=== PATIENT | male | born 1940 | race Asian ===

== ENCOUNTER 2016-07-21 11:34 | Outpatient (CLI) | payer OTHER ==
[~2016-07-21 11:34] MED LIST: ALBU90AE13 INH; BENICAR HCT1 TA1 PO; BENICAR HCT1 TAB PO; FURO20TA67 PO; LANOXIN 0.120.125 M1 PO; LORA10TA3 PO; LORTAB1 TAB PO; MELO-13 PO; POTASSIUM CHLO20 ME1 PO; PROAIR HFA IN; RANI150T78 PO; Z-PAK PO
== END 2016-07-21 19:52 | disposition home or self-care (01) ==
LOC: LABW 11:34
DX: I48.0 Paroxysmal atrial fibrillation (principal); Z79.899 Other long term (current) drug therapy; Z51.81 Encounter for therapeutic drug level monitoring
CPT/HCPCS: 36415; 85610

== ENCOUNTER 2016-11-19 08:33 | Outpatient (CLI) | payer OTHER | END 2016-11-19 10:00 | disposition home or self-care (01) | LOC: LABW 08:33 | DX: I48.0 Paroxysmal atrial fibrillation (principal); Z79.01 Long term (current) use of anticoagulants | CPT/HCPCS: 36415; 85610 ==

== ENCOUNTER 2016-12-09 08:08 | Outpatient (CLI) | payer OTHER | END 2016-12-09 19:19 | disposition home or self-care (01) | LOC: LABW 08:08 | DX: Z79.01 Long term (current) use of anticoagulants (principal); Z51.81 Encounter for therapeutic drug level monitoring; Z79.899 Other long term (current) drug therapy; I48.0 Paroxysmal atrial fibrillation | CPT/HCPCS: 36415; 85610 ==

== ENCOUNTER 2017-02-12 11:48 | Outpatient (CLI) | payer OTHER | END 2017-02-12 19:14 | disposition home or self-care (01) | LOC: LABW 11:48 | DX: Z79.01 Long term (current) use of anticoagulants (principal); Z79.899 Other long term (current) drug therapy; I48.0 Paroxysmal atrial fibrillation; Z51.81 Encounter for therapeutic drug level monitoring | CPT/HCPCS: 36415; 85610 ==

== ENCOUNTER 2017-06-29 10:55 | Outpatient (CLI) | payer OTHER | END 2017-06-29 21:41 | disposition home or self-care (01) | LOC: LABW 10:55 | DX: Z79.01 Long term (current) use of anticoagulants (principal); Z79.899 Other long term (current) drug therapy; I48.0 Paroxysmal atrial fibrillation; Z51.81 Encounter for therapeutic drug level monitoring | CPT/HCPCS: 36415; 85610 ==

== ENCOUNTER 2017-07-28 13:46 | Outpatient (CLI) | payer OTHER | END 2017-07-28 19:40 | disposition home or self-care (01) | LOC: LABW 13:46 | DX: Z79.01 Long term (current) use of anticoagulants (principal); I48.0 Paroxysmal atrial fibrillation; Z51.81 Encounter for therapeutic drug level monitoring | CPT/HCPCS: 36415; 85610 ==

== ENCOUNTER 2017-08-23 09:28 | Outpatient (CLI) | payer OTHER | END 2017-08-23 20:23 | disposition home or self-care (01) | LOC: LABW 09:28 | DX: Z79.01 Long term (current) use of anticoagulants (principal); Z79.899 Other long term (current) drug therapy; I48.0 Paroxysmal atrial fibrillation; Z51.81 Encounter for therapeutic drug level monitoring | CPT/HCPCS: 36415; 85610 ==

== ENCOUNTER 2017-10-04 09:17 | Outpatient (CLI) | payer OTHER | END 2017-10-04 19:21 | disposition home or self-care (01) | LOC: LABW 09:17 | DX: Z79.01 Long term (current) use of anticoagulants (principal); Z79.899 Other long term (current) drug therapy; I48.0 Paroxysmal atrial fibrillation; Z51.81 Encounter for therapeutic drug level monitoring | CPT/HCPCS: 36415; 85610 ==

== ENCOUNTER 2017-10-25 09:29 | Outpatient (CLI) | payer OTHER | END 2017-10-25 21:48 | disposition home or self-care (01) | LOC: LABW 09:29 | DX: Z79.01 Long term (current) use of anticoagulants (principal); Z79.899 Other long term (current) drug therapy; Z51.81 Encounter for therapeutic drug level monitoring; I48.0 Paroxysmal atrial fibrillation | CPT/HCPCS: 36415; 85610 ==

== ENCOUNTER 2019-04-04 12:08 | Emergency (ER) | payer OTHER ==
[~2019-04-04] VITALS: Ht 182.9 cm; Wt 143.8 kg
[2019-04-04 12:44] LABS: PLATELET COUNT 168 K/uL (142-355)
[2019-04-04] MEDS ORDERED: METF500T PO (12:46)
[2019-04-04] MEDS ORDERED: PRAVASTATIN10 MG PO (12:46)
[2019-04-04 12:47] LABS: POTASSIUM 3.8 mmol/L (3.6-5.2)
[2019-04-04] MEDS ORDERED: FLONASE SE27.5 MCG/S INH (12:47)
[2019-04-04] MEDS ORDERED: CARTIA XT120 MG PO (12:47)
[2019-04-04] MEDS ORDERED: FURO40TA93 PO (12:48)
[2019-04-04] MEDS ORDERED: LISI10TA11 PO (12:48)
[2019-04-04] MEDS ORDERED: PRADAXA150 MG PO (12:49)
[2019-04-04] MEDS ORDERED: ASPIRIN325 M1 PO (12:49)
[2019-04-04 15:55] VITALS: BP 162/96; TEMP 97.9
== END 2019-04-04 15:55 | disposition short-term general hospital (02) ==
LOC: ED 12:08
PROVIDERS: Family Medicine
DX: I21.09 ST elevation (STEMI) myocardial infarction involving other coronary artery of anterior wall (principal); I50.9 Heart failure, unspecified; I48.91 Unspecified atrial fibrillation
CPT/HCPCS: 36415; 80053; 82550; 83880; 84484; 85027; 93005; 96374; 99284; J1644

== ENCOUNTER 2019-07-01 11:19 | Inpatient (IN) | payer OTHER ==
[2019-07-01] VITALS (21 sets, daily range): BP systolic 139–166; BP diastolic 71–102; TEMP 97.3–98.4; Ht 185.4 cm; Wt 143.0 kg
[~2019-07-01] VITALS: Ht 185.4 cm; Wt 143.0 kg
[~2019-07-01 11:19] MED LIST changes: +ASPIRIN325 M1 PO; +CARTIA XT120 MG PO; +FLONASE SE27.5 MCG/S INH; +FURO40TA93 PO; +LISI10TA11 PO; +METF500T PO; +PRADAXA150 MG PO; +PRAVASTATIN10 MG PO
[2019-07-01 11:56] LABS: PLATELET COUNT 128 K/uL (142-355)
[2019-07-01 12:16] LABS: POTASSIUM 4.2 mmol/L (3.6-5.2); SODIUM 133 mmol/L (136-145)
[2019-07-01 18:40] LABS: PARTIAL THROMBOPLASTIN TIME 25.5 SECONDS (24.5-33.6)
[2019-07-02] VITALS (19 sets, daily range): BP systolic 106–156; BP diastolic 61–95; TEMP 97.5–98.7
[2019-07-02 05:53] LABS: PLATELET COUNT 122 K/uL (142-355)
[2019-07-02 06:09] LABS: POTASSIUM 4.2 mmol/L (3.6-5.2)
[2019-07-03] VITALS: BP 103/70
[2019-07-03 01:00] VITALS: BP 103/70
[2019-07-03 02:00] VITALS: BP 137/80
[2019-07-03 04:00] VITALS: BP 108/84
[2019-07-03 05:42] LABS: PLATELET COUNT 124 K/uL (142-355)
[2019-07-03 05:58] LABS: POTASSIUM 5.4 mmol/L (3.6-5.2)
[2019-07-03 07:00] VITALS: BP 123/69
[2019-07-03 08:04] VITALS: BP 130/74; TEMP 98.2
== END 2019-07-03 10:50 | disposition home or self-care (01) | DRG 189 ==
LOC: ED 11:19 → ICU 15:58
PROVIDERS: Family Medicine; ADMIT Emergency Medicine
DX: J96.01 Acute respiratory failure with hypoxia (principal); Z68.42 Body mass index [BMI] 45.0-49.9, adult; R18.8 Other ascites; R07.89 Other chest pain; I48.91 Unspecified atrial fibrillation; E66.8 Other obesity; I73.89 Other specified peripheral vascular diseases; E78.00 Pure hypercholesterolemia, unspecified; Z91.14 Patient's other noncompliance with medication regimen; I50.9 Heart failure, unspecified
CPT/HCPCS: 36415; 36600; 80053; 80061; 80162; 81000; 82140; 82550; 82553; 82805; 83036; 83880; 84132; 84484; 85027; 85610; 85730; 93005; 94660; 94760; 96374; 99284; J1644; J1940; J2930

== ENCOUNTER 2019-09-29 16:17 | Emergency (ER) | payer OTHER ==
[~2019-09-29] VITALS: Ht 185.4 cm; Wt 145.6 kg
[2019-09-29 17:47] LABS: PLATELET COUNT 153 K/uL (142-355); POTASSIUM 4.9 mmol/L (3.6-5.2); SODIUM 131 mmol/L (136-145)
[2019-09-29 21:45] VITALS: BP 125/68; TEMP 98.3
== END 2019-09-29 21:45 | disposition home or self-care (01) ==
LOC: ED 16:17
PROVIDERS: Family Medicine
DX: I50.9 Heart failure, unspecified (principal); R42 Dizziness and giddiness; I48.91 Unspecified atrial fibrillation
CPT/HCPCS: 36415; 80053; 81000; 82550; 83880; 84484; 85027; 93005; 96374; 99284; J1940

== ENCOUNTER 2019-11-30 15:10 | Inpatient (IN) | payer OTHER ==
[~2019-11-30] VITALS: Ht 185.4 cm; Wt 151.2 kg
[2019-11-30] VITALS (7 sets, daily range): BP systolic 137–163; BP diastolic 75–87; TEMP 97.9–98.2; Ht 185.4 cm; Wt 151.2 kg
[2019-11-30 15:37] LABS: PLATELET COUNT 148 K/uL (142-355)
[2019-11-30 15:45] LABS: POTASSIUM 4.1 mmol/L (3.6-5.2); SODIUM 124 mmol/L (136-145)
[2019-11-30 17:11] LABS: PARTIAL THROMBOPLASTIN TIME 26.6 SECONDS (24.5-33.6)
[2019-12-01] VITALS (13 sets, daily range): BP systolic 115–158; BP diastolic 57–88; TEMP 97.8–98.8
[2019-12-01 05:36] LABS: POTASSIUM 3.8 mmol/L (3.6-5.2)
[2019-12-02 00:05] VITALS: BP 158/88; TEMP 98.1
[2019-12-02 04:01] VITALS: BP 132/85; TEMP 98.3
[2019-12-02 05:25] LABS: POTASSIUM 3.6 mmol/L (3.6-5.2)
[2019-12-02 08:00] VITALS: BP 125/71; TEMP 98.1
[2019-12-02 21:24] VITALS: BP 143/83; TEMP 97.7
[2019-12-03 00:11] VITALS: BP 118/59; TEMP 98
[2019-12-03 04:07] VITALS: BP 121/55; TEMP 97.8
[2019-12-03 05:30] LABS: POTASSIUM 3.8 mmol/L (3.6-5.2); SODIUM 132 mmol/L (136-145)
[2019-12-03] MEDS ORDERED: SOD CHLORIDE1 GM PO (11:21)
[2019-12-03] MEDS ORDERED: ACETAMINOPHEN PO (11:24)
[2019-12-03] MEDS ORDERED: [UNRECOGNIZED DRUG - OTHER] PO (11:24)
== END 2019-12-03 12:05 | disposition home or self-care (01) | DRG 291 ==
LOC: ED 15:10 → MED/SURG 16:20
PROVIDERS: Hospitalist; ADMIT Internal Medicine
DX: I11.0 Hypertensive heart disease with heart failure (principal); I50.21 Acute systolic (congestive) heart failure; E87.1 Hypo-osmolality and hyponatremia; J44.9 Chronic obstructive pulmonary disease, unspecified; E11.9 Type 2 diabetes mellitus without complications; E78.49 Other hyperlipidemia; K21.9 Gastro-esophageal reflux disease without esophagitis
CPT/HCPCS: 36600; 80048; 80053; 80162; 82550; 82805; 83735; 83880; 84484; 85027; 85379; 85610; 85730; 87070; 87205; 87502; 87635; 87651; 93005; 96374; 99284; J1650; J1940; U0002

== ENCOUNTER 2020-03-23 21:01 | Emergency (ER) | payer OTHER ==
[~2020-03-23] VITALS: Ht 185.4 cm; Wt 136.1 kg
[~2020-03-23 21:01] MED LIST changes: +ACETAMINOPHEN PO; +SOD CHLORIDE1 GM PO; +[UNRECOGNIZED DRUG - OTHER] PO
[2020-03-23 22:47] LABS: PLATELET COUNT 172 K/uL (142-355)
[2020-03-23 22:55] LABS: POTASSIUM 3.6 mmol/L (3.6-5.2); SODIUM 127 mmol/L (136-145)
[2020-03-24 01:45] VITALS: BP 139/67; TEMP 98.4
== END 2020-03-24 01:45 | disposition home or self-care (01) ==
LOC: ED 21:01
PROVIDERS: Emergency Medicine
DX: I50.9 Heart failure, unspecified (principal); R05 Cough
CPT/HCPCS: 36415; 80053; 81000; 82550; 82553; 83605; 83880; 84484; 85027; 85379; 87040; 93005; 96365; 96375; 99284; J0456; J1940

== ENCOUNTER 2020-03-29 19:27 | Inpatient (IN) | payer OTHER ==
[~2020-03-29] VITALS: Ht 185.4 cm; Wt 135.2 kg
[2020-03-29] VITALS (12 sets, daily range): BP systolic 93–135; BP diastolic 43–86; TEMP 98.2
[2020-03-29 20:44] LABS: PLATELET COUNT 227 K/uL (142-355)
[2020-03-29 20:51] LABS: POTASSIUM 3.3 mmol/L (3.6-5.2)
[2020-03-29 20:55] LABS: PARTIAL THROMBOPLASTIN TIME 27.9 SECONDS (24.5-33.6)
[2020-03-29 21:02] LABS: SODIUM 118 mmol/L (136-145)
[2020-03-30] VITALS (11 sets, daily range): BP systolic 94–146; BP diastolic 54–80; TEMP 97.5–98.4; Ht 185.4 cm; Wt 135.2 kg
[2020-03-30 00:04] LABS: POTASSIUM 3.5 mmol/L (3.6-5.2)
[2020-03-30 05:27] LABS: PLATELET COUNT 214 K/uL (142-355)
[2020-03-30 05:46] LABS: POTASSIUM 2.9 mmol/L (3.6-5.2)
[2020-03-30 06:07] LABS: SODIUM 118 mmol/L (136-145)
[2020-03-30 09:26] LABS: POTASSIUM 3.3 mmol/L (3.6-5.2)
[2020-03-30 12:18] LABS: POTASSIUM 3.3 mmol/L (3.6-5.2)
[2020-03-30 17:06] LABS: POTASSIUM 3.4 mmol/L (3.6-5.2)
[2020-03-30 20:51] LABS: POTASSIUM 3.3 mmol/L (3.6-5.2)
[2020-03-31 00:51] LABS: POTASSIUM 3.3 mmol/L (3.6-5.2)
[2020-03-31 04:00] VITALS: BP 136/62; TEMP 98.4
[2020-03-31 05:52] LABS: POTASSIUM 3.5 mmol/L (3.6-5.2)
[2020-03-31 08:00] VITALS: BP 121/61; TEMP 97.6
[2020-03-31 08:44] LABS: POTASSIUM 3.5 mmol/L (3.6-5.2)
[2020-03-31 11:58] LABS: POTASSIUM 3.6 mmol/L (3.6-5.2)
[2020-03-31 12:00] VITALS: BP 123/68; TEMP 97.7
[2020-03-31 16:00] VITALS: BP 154/92; TEMP 97.4
[2020-03-31 17:16] LABS: POTASSIUM 4.1 mmol/L (3.6-5.2)
[2020-03-31 20:00] VITALS: BP 83/62; TEMP 97.6
[2020-03-31 22:29] LABS: POTASSIUM 3.8 mmol/L (3.6-5.2)
[2020-04-01] VITALS: BP 116/68; TEMP 98.7
[2020-04-01 04:00] VITALS: BP 161/66; TEMP 98.7
[2020-04-01 06:15] LABS: POTASSIUM 3.9 mmol/L (3.6-5.2)
[2020-04-01 08:00] VITALS: BP 138/75; TEMP 98.2
[2020-04-01 08:19] LABS: POTASSIUM 4.1 mmol/L (3.6-5.2)
[2020-04-01 12:00] VITALS: BP 121/77; TEMP 98.1
[2020-04-01 12:40] LABS: POTASSIUM 4.2 mmol/L (3.6-5.2)
[2020-04-01 16:00] VITALS: BP 151/58; TEMP 98.1
[2020-04-01 20:00] VITALS: BP 121/71; TEMP 97.4
[2020-04-01 20:46] LABS: POTASSIUM 4.3 mmol/L (3.6-5.2)
[2020-04-02] VITALS: BP 154/90; TEMP 97.4
[2020-04-02 01:11] LABS: POTASSIUM 3.9 mmol/L (3.6-5.2)
[2020-04-02 04:00] VITALS: BP 157/73; TEMP 97.5
[2020-04-02 05:53] LABS: POTASSIUM 3.9 mmol/L (3.6-5.2)
[2020-04-02 08:00] VITALS: BP 118/66; TEMP 98.1
[2020-04-02 08:38] LABS: POTASSIUM 4.6 mmol/L (3.6-5.2)
[2020-04-02 12:00] VITALS: BP 123/57; TEMP 97.6
[2020-04-02 12:27] LABS: POTASSIUM 4.7 mmol/L (3.6-5.2)
[2020-04-02] MEDS ORDERED: METO5TAB38 PO (15:56)
[2020-04-02] MEDS ORDERED: MONTELUKAST SODI5 MG PO (15:57)
[2020-04-02 16:00] VITALS: BP 119/52; TEMP 98.1
[2020-04-02] MEDS ORDERED: FURO40TA93 PO (16:00)
[2020-04-02] MEDS ORDERED: ELIQUIS5 MG PO (16:00)
[2020-04-02 16:06] LABS: POTASSIUM 4.9 mmol/L (3.6-5.2)
[2020-04-02 20:00] VITALS: BP 134/75; TEMP 97.6
[2020-04-02 21:14] LABS: POTASSIUM 4.7 mmol/L (3.6-5.2)
[2020-04-03] VITALS: BP 121/76; TEMP 97.8
[2020-04-03 01:33] LABS: POTASSIUM 4.4 mmol/L (3.6-5.2)
[2020-04-03 04:00] VITALS: BP 134/76; TEMP 97.8
[2020-04-03 04:48] LABS: PLATELET COUNT 222 K/uL (142-355)
[2020-04-03 05:24] LABS: POTASSIUM 4.3 mmol/L (3.6-5.2)
[2020-04-03 08:00] VITALS: BP 113/59; TEMP 98.5
[2020-04-03 08:26] LABS: POTASSIUM 4.6 mmol/L (3.6-5.2)
[2020-04-03] MEDS ORDERED: SOD CHLORIDE1 GM PO (11:16)
[2020-04-03 12:00] VITALS: BP 138/74; TEMP 98.3
[2020-04-03 12:29] LABS: POTASSIUM 4.4 mmol/L (3.6-5.2)
[2020-04-03 16:00] VITALS: BP 144/80; TEMP 98.4
[2020-04-03 16:43] LABS: POTASSIUM 5.8 mmol/L (3.6-5.2)
== END 2020-04-03 19:37 | disposition home or self-care (01) | DRG 641 ==
LOC: ED 19:27 → MED/SURG 03-30 01:40
PROVIDERS: Family Medicine; Internal Medicine; ADMIT Internal Medicine Endocrinology, Diabetes & Metabolism
DX: E87.1 Hypo-osmolality and hyponatremia (principal); Z68.42 Body mass index [BMI] 45.0-49.9, adult; I50.20 Unspecified systolic (congestive) heart failure; E87.6 Hypokalemia; R53.1 Weakness; E11.9 Type 2 diabetes mellitus without complications; E78.49 Other hyperlipidemia; I11.0 Hypertensive heart disease with heart failure; I50.9 Heart failure, unspecified; E66.01 Morbid (severe) obesity due to excess calories; I48.91 Unspecified atrial fibrillation; K21.9 Gastro-esophageal reflux disease without esophagitis; G47.39 Other sleep apnea
CPT/HCPCS: 36415; 80048; 80053; 80162; 81000; 82550; 82948; 83880; 83930; 83935; 84484; 85027; 85610; 85730; 93005; 96360; 96366; 96372; 96374; 96375; 99284; J1815; J1940; J3480; J3490

== ENCOUNTER 2020-04-08 07:26 | Outpatient (CLI) | payer OTHER ==
[~2020-04-08 07:26] MED LIST changes: +ELIQUIS5 MG PO; +METO5TAB38 PO; +MONTELUKAST SODI5 MG PO
== END 2020-04-08 19:02 | disposition home or self-care (01) ==
LOC: RESP 07:26
DX: I50.20 Unspecified systolic (congestive) heart failure (principal); R00.1 Bradycardia, unspecified; E87.1 Hypo-osmolality and hyponatremia

== ENCOUNTER 2020-08-21 19:25 | Emergency (ER) | payer OTHER ==
[~2020-08-21] VITALS: Ht 185.4 cm; Wt 142.9 kg
[2020-08-21 20:05] LABS: PLATELET COUNT 190 K/uL (142-355)
[2020-08-21 20:22] LABS: PARTIAL THROMBOPLASTIN TIME 26.5 SECONDS (24.5-33.6)
[2020-08-21 20:25] LABS: POTASSIUM 4.2 mmol/L (3.6-5.2); SODIUM 134 mmol/L (136-145)
[2020-08-21 21:40] VITALS: BP 148/79; TEMP 98.2
== END 2020-08-21 21:40 | disposition home or self-care (01) ==
LOC: ED 19:25
PROVIDERS: Family Medicine
DX: I50.9 Heart failure, unspecified (principal); Z20.828 Contact with and (suspected) exposure to other viral communicable diseases
CPT/HCPCS: 80053; 82550; 83880; 84484; 85027; 85379; 85610; 85730; 87635; 93005; 96374; 96375; 99284; J1940; J2930; U0003

== ENCOUNTER 2020-09-03 12:00 | Outpatient (CLI) | payer OTHER ==
[2020-09-03 13:15] LABS: POTASSIUM 4.3 mmol/L (3.6-5.2)
== END 2020-09-03 21:07 | disposition home or self-care (01) ==
LOC: LABW 12:00
PROVIDERS: ATTEND Nurse Practitioner
DX: E78.2 Mixed hyperlipidemia (principal); Z51.81 Encounter for therapeutic drug level monitoring; I10 Essential (primary) hypertension; I42.0 Dilated cardiomyopathy; R60.0 Localized edema
CPT/HCPCS: 36415; 80048; 80061; 80076

== ENCOUNTER 2020-09-27 08:18 | Emergency (ER) | payer OTHER ==
[~2020-09-27] VITALS: Ht 185.4 cm; Wt 131.5 kg
[2020-09-27 08:32] VITALS: TEMP 98.1
[2020-09-27 09:20] LABS: PLATELET COUNT 143 K/uL (142-355)
[2020-09-27 09:30] LABS: POTASSIUM 3.6 mmol/L (3.6-5.2); SODIUM 137 mmol/L (136-145)
[2020-09-27 11:21] VITALS: BP 130/70
== END 2020-09-27 11:22 | disposition home or self-care (01) ==
LOC: ED 08:18
PROVIDERS: Family Medicine
DX: I48.91 Unspecified atrial fibrillation (principal); I50.9 Heart failure, unspecified
CPT/HCPCS: 36415; 80053; 83880; 84484; 85027; 85379; 93005; 96374; 99284; J1940

== ENCOUNTER 2020-10-11 11:36 | Emergency (ER) | payer OTHER ==
[~2020-10-11] VITALS: Ht 185.4 cm; Wt 136.1 kg
[2020-10-11 12:06] LABS: PLATELET COUNT 166 K/uL (142-355)
[2020-10-11 12:12] LABS: POTASSIUM 4.3 mmol/L (3.6-5.2); SODIUM 137 mmol/L (136-145)
[2020-10-11 15:50] VITALS: BP 114/70; TEMP 98
== END 2020-10-11 15:50 | disposition home or self-care (01) ==
LOC: ED 11:36
PROVIDERS: Family Medicine
DX: I50.9 Heart failure, unspecified (principal); J44.9 Chronic obstructive pulmonary disease, unspecified
CPT/HCPCS: 36415; 80053; 81000; 83880; 84484; 85027; 93005; 96374; 99284; J1940

== ENCOUNTER 2020-11-23 22:00 | Inpatient (IN) | payer OTHER ==
[~2020-11-23] VITALS: Ht 182.9 cm; Wt 138.0 kg
[2020-11-23 22:10] VITALS: BP 150/64
[2020-11-23 22:31] VITALS: BP 138/72
[2020-11-23 22:37] LABS: PLATELET COUNT 121 K/uL (142-355)
[2020-11-23 23:00] VITALS: BP 111/57
[2020-11-23 23:21] LABS: POTASSIUM 3.6 mmol/L (3.6-5.2)
[2020-11-23 23:45] VITALS: BP 128/75
[2020-11-24] VITALS (13 sets, daily range): BP systolic 117–145; BP diastolic 54–91; TEMP 97.4–98.3; Ht 182.9 cm; Wt 138.0 kg
[2020-11-24] MEDS ORDERED: POTASSIUM CHLO20 ME1 PO (04:39)
[2020-11-24] MEDS ORDERED: ASA LOW DOSE81 MG PO (04:41)
[2020-11-24 08:07] LABS: PLATELET COUNT 132 K/uL (142-355)
[2020-11-24 08:26] LABS: POTASSIUM 4.2 mmol/L (3.6-5.2)
[2020-11-24] MEDS ORDERED: PRINIVIL10 MG PO (09:02)
[2020-11-25 00:04] VITALS: BP 134/74; TEMP 98.4
[2020-11-25 04:21] VITALS: BP 103/61; TEMP 97.5
[2020-11-25 07:43] LABS: PLATELET COUNT 123 K/uL (142-355)
[2020-11-25 08:00] VITALS: BP 152/76; TEMP 98.1
[2020-11-25 08:27] LABS: POTASSIUM 3.8 mmol/L (3.6-5.2)
== END 2020-11-25 10:45 | disposition home or self-care (01) | DRG 191 ==
LOC: ED 22:00 → MED/SURG 11-24 02:17
PROVIDERS: ADMIT Family Medicine; ATTEND Internal Medicine Endocrinology, Diabetes & Metabolism
DX: J44.1 Chronic obstructive pulmonary disease with (acute) exacerbation (principal); I50.1 Left ventricular failure, unspecified; I48.19 Other persistent atrial fibrillation; Z68.42 Body mass index [BMI] 45.0-49.9, adult; J38.00 Paralysis of vocal cords and larynx, unspecified; I11.0 Hypertensive heart disease with heart failure; E11.9 Type 2 diabetes mellitus without complications; R07.89 Other chest pain; E66.01 Morbid (severe) obesity due to excess calories
CPT/HCPCS: 36415; 80048; 80053; 82550; 83880; 84484; 85027; 85379; 85610; 85730; 87635; 93005; 94640; 94664; 94760; 96360; 96365; 96366; 96372; 96374; 96375; 99284; J0696; J1200; J1815; J1940; J2930; U0003

== ENCOUNTER 2020-12-17 13:52 | Emergency (ER) | payer OTHER ==
[~2020-12-17] VITALS: Ht 185.4 cm; Wt 137.9 kg
[~2020-12-17 13:52] MED LIST changes: +ASA LOW DOSE81 MG PO; +PRINIVIL10 MG PO
[2020-12-17 14:03] VITALS: TEMP 98.1
[2020-12-17 15:10] LABS: PLATELET COUNT 138 K/uL (142-355)
[2020-12-17 15:17] LABS: POTASSIUM 3.4 mmol/L (3.6-5.2)
[2020-12-17 17:57] VITALS: BP 122/78
== END 2020-12-17 18:05 | disposition short-term general hospital (02) ==
LOC: ED 13:52
PROVIDERS: Family Medicine
DX: R06.03 Acute respiratory distress (principal); R06.1 Stridor
CPT/HCPCS: 80053; 85027; 94664; 96365; 96375; 99284; J0696; J2930

== ENCOUNTER 2021-01-07 12:45 | Emergency (ER) | payer OTHER | END 2021-01-07 16:10 | disposition short-term general hospital (02) | LOC: ED 12:45 | PROC: 0HQ4XZZ Repair Neck Skin, External Approach (ICD-10-PCS; principal; 2021-01-07) | DX: S23.29XA Dislocation of other parts of thorax, initial encounter (principal); X58.XXXA Exposure to other specified factors, initial encounter; Y93.89 Activity, other specified; Y92.89 Other specified places as the place of occurrence of the external cause; R04.1 Hemorrhage from throat | CPT/HCPCS: 99284 ==

== ENCOUNTER 2021-01-13 15:41 | Observation (INO) | payer OTHER ==
[2021-01-21 11:36] LABS: PLATELET COUNT 183 K/uL (142-355)
[2021-01-21 11:38] LABS: POTASSIUM 3.9 mmol/L (3.6-5.2)
[2021-01-22 17:02] LABS: POTASSIUM 4.2 mmol/L (3.6-5.2)
== END 2021-01-14 15:55 | disposition home or self-care (01) ==
LOC: ED 15:41 → MED/SURG 18:30
PROVIDERS: ADMIT Emergency Medicine Emergency Medical Services; ATTEND Internal Medicine
PROC: 30233N1 Transfusion of Nonautologous Red Blood Cells into Peripheral Vein, Percutaneous Approach (ICD-10-PCS; principal; 2021-01-14)
DX: D62 Acute posthemorrhagic anemia (principal); J44.1 Chronic obstructive pulmonary disease with (acute) exacerbation; I11.0 Hypertensive heart disease with heart failure; I50.9 Heart failure, unspecified; I48.91 Unspecified atrial fibrillation; J95.01 Hemorrhage from tracheostomy stoma
CPT/HCPCS: 36415; 80048; 80053; 82948; 83880; 85027; 87635; 93005; 94640; 94644; 94664; 94760; 96365; 96372; 96375; 99220; 99284; G0378; U0003

== ENCOUNTER 2021-02-13 12:27 | Outpatient (CLI) | payer OTHER | END 2021-02-13 22:06 | disposition home or self-care (01) | LOC: LAB 12:27 | PROVIDERS: ATTEND Nurse Practitioner Family | DX: R30.9 Painful micturition, unspecified (principal) | CPT/HCPCS: 81000 ==

== ENCOUNTER 2021-02-15 17:48 | Emergency (ER) | payer OTHER ==
[~2021-02-15] VITALS: Ht 185.4 cm; Wt 137.9 kg
[2021-02-15 17:48] VITALS: TEMP 97.1
[2021-02-15 18:38] LABS: PLATELET COUNT 231 K/uL (142-355)
[2021-02-15 18:49] LABS: POTASSIUM 3.7 mmol/L (3.6-5.2); SODIUM 123 mmol/L (136-145)
[2021-02-15 19:50] VITALS: BP 121/68
== END 2021-02-15 19:50 | disposition home or self-care (01) ==
LOC: ED 17:48
PROVIDERS: Emergency Medicine
DX: M54.5 Low back pain (principal); M99.9 Biomechanical lesion, unspecified; I48.91 Unspecified atrial fibrillation; R06.02 Shortness of breath
CPT/HCPCS: 80053; 82550; 83880; 84484; 85027; 93005; 96374; 99284; J1885

== ENCOUNTER 2021-02-16 22:11 | Inpatient (IN) | payer OTHER ==
[~2021-02-16] VITALS: Ht 185.4 cm; Wt 120.9 kg
[2021-02-16 22:28] VITALS: BP 110/74; TEMP 98.7
[2021-02-16 22:37] LABS: PLATELET COUNT 227 K/uL (142-355)
[2021-02-16 22:56] VITALS: BP 120/83; TEMP 98.7
[2021-02-16 22:59] LABS: POTASSIUM 3.8 mmol/L (3.6-5.2); SODIUM 120 mmol/L (136-145)
[2021-02-16 23:15] LABS: PARTIAL THROMBOPLASTIN TIME 29.2 SECONDS (24.5-33.6)
[2021-02-16 23:26] VITALS: BP 157/75; TEMP 98.7
[2021-02-17] VITALS (8 sets, daily range): BP systolic 101–151; BP diastolic 50–79; TEMP 97.3–98.4; Ht 185.4 cm; Wt 120.9 kg
[2021-02-17 08:09] LABS: POTASSIUM 3.5 mmol/L (3.6-5.2)
[2021-02-17 20:46] LABS: POTASSIUM 3.4 mmol/L (3.6-5.2)
[2021-02-18 00:16] VITALS: BP 103/45; TEMP 97.9
[2021-02-18 02:19] LABS: PLATELET COUNT 209 K/uL (142-355)
[2021-02-18 04:00] VITALS: BP 116/66; TEMP 98.1
[2021-02-18 08:00] VITALS: BP 123/60; TEMP 98.2
[2021-02-18 08:24] LABS: POTASSIUM 2.8 mmol/L (3.6-5.2)
[2021-02-18 12:00] VITALS: BP 112/64; TEMP 98.1
[2021-02-18 14:05] LABS: POTASSIUM 2.7 mmol/L (3.6-5.2)
[2021-02-18 16:00] VITALS: BP 129/66; TEMP 98.3
[2021-02-18 19:44] LABS: POTASSIUM 3.7 mmol/L (3.6-5.2)
[2021-02-18 20:00] VITALS: BP 129/65; TEMP 98.3
[2021-02-19 00:17] VITALS: BP 97/61; TEMP 98.2
[2021-02-19 02:25] LABS: PLATELET COUNT 201 K/uL (142-355)
[2021-02-19 03:06] LABS: POTASSIUM 2.6 mmol/L (3.6-5.2)
[2021-02-19 04:00] VITALS: BP 131/68; TEMP 98.2
[2021-02-19 08:00] VITALS: BP 120/65; TEMP 97.9
[2021-02-19 08:40] LABS: POTASSIUM 2.9 mmol/L (3.6-5.2)
[2021-02-19 12:27] VITALS: BP 115/73; TEMP 98.1
[2021-02-19 14:38] LABS: POTASSIUM 3.3 mmol/L (3.6-5.2)
[2021-02-19 16:00] VITALS: BP 165/61; TEMP 97.4
[2021-02-19 20:00] VITALS: BP 95/54; TEMP 97.6
[2021-02-20 00:23] VITALS: BP 122/59; TEMP 98.4
[2021-02-20 04:00] VITALS: BP 148/74; TEMP 98.3
[2021-02-20 06:31] LABS: PLATELET COUNT 217 K/uL (142-355)
[2021-02-20 06:58] LABS: POTASSIUM 2.7 mmol/L (3.6-5.2)
[2021-02-20 08:00] VITALS: BP 89/46; TEMP 98.3
[2021-02-20 08:24] LABS: POTASSIUM 2.8 mmol/L (3.6-5.2)
[2021-02-20 12:00] VITALS: BP 84/48; TEMP 98
[2021-02-20 16:00] VITALS: BP 116/68; TEMP 98.1
[2021-02-20 20:00] VITALS: BP 113/65; TEMP 98.1
[2021-02-21] VITALS: BP 116/64; TEMP 98.4
[2021-02-21 04:00] VITALS: BP 121/68; TEMP 98.2
[2021-02-21 04:36] LABS: PLATELET COUNT 206 K/uL (142-355)
[2021-02-21 04:49] LABS: POTASSIUM 3.4 mmol/L (3.6-5.2)
[2021-02-21 08:00] VITALS: BP 130/63; TEMP 98.1
[2021-02-21 12:00] VITALS: BP 112/66; TEMP 97.4
[2021-02-21 16:00] VITALS: BP 122/72; TEMP 98.3
[2021-02-21 20:00] VITALS: BP 126/66; TEMP 97.5
[2021-02-22 00:06] VITALS: BP 118/83; TEMP 97.9
[2021-02-22 04:00] VITALS: BP 99/60; TEMP 97.5
[2021-02-22 06:17] LABS: POTASSIUM 3.2 mmol/L (3.6-5.2)
[2021-02-22 08:00] VITALS: BP 138/69; TEMP 98.1
[2021-02-22 12:00] VITALS: BP 106/61; TEMP 97.2
[2021-02-22 16:00] VITALS: BP 109/64; TEMP 97.3
[2021-02-22 20:00] VITALS: BP 127/76; TEMP 98.2
[2021-02-23 00:07] VITALS: BP 123/72; TEMP 97.8
[2021-02-23 04:00] VITALS: BP 113/66; TEMP 97.6
[2021-02-23 05:41] LABS: POTASSIUM 3.3 mmol/L (3.6-5.2)
[2021-02-23 08:00] VITALS: BP 109/60; TEMP 98.2
[2021-02-23] MEDS ORDERED: FURO40TA93 PO (12:03)
[2021-02-23] MEDS ORDERED: DILT30TA24 PO (12:03)
[2021-02-23] MEDS ORDERED: POTA20TA4 PO (12:04)
[2021-02-23] MEDS ORDERED: MAGN400T4 PO (12:04)
[2021-02-23] MEDS ORDERED: SOD CHLORIDE1 GM PO (12:05)
[2021-02-23] MEDS ORDERED: LISI10TA11 PO (12:11)
== END 2021-02-23 12:30 | disposition home or self-care (01) | DRG 189 ==
LOC: ED 22:11 → MED/SURG 23:45
PROVIDERS: Internal Medicine; ADMIT Hospitalist; ATTEND Internal Medicine Endocrinology, Diabetes & Metabolism
DX: J96.20 Acute and chronic respiratory failure, unspecified whether with hypoxia or hypercapnia (principal); J18.8 Other pneumonia, unspecified organism; J44.0 Chronic obstructive pulmonary disease with (acute) lower respiratory infection; Z68.42 Body mass index [BMI] 45.0-49.9, adult; E87.1 Hypo-osmolality and hyponatremia; Z93.0 Tracheostomy status; E11.9 Type 2 diabetes mellitus without complications; I48.91 Unspecified atrial fibrillation; G47.33 Obstructive sleep apnea (adult) (pediatric); I11.0 Hypertensive heart disease with heart failure; I50.9 Heart failure, unspecified; E66.01 Morbid (severe) obesity due to excess calories; K21.9 Gastro-esophageal reflux disease without esophagitis; M15.8 Other polyosteoarthritis; E87.6 Hypokalemia; I95.89 Other hypotension; E83.42 Hypomagnesemia
CPT/HCPCS: 36415; 36600; 80048; 80053; 82550; 82805; 83605; 83735; 83880; 84300; 84484; 85027; 85610; 85730; 87040; 87635; 90658; 93005; 94640; 94664; 94760; 96360; 96365; 96366; 96375; 99284; J0456; J1650; J1940; J1956; J3475; J3490; U0003

== ENCOUNTER 2021-03-06 13:39 | Emergency (ER) | payer OTHER ==
[~2021-03-06] VITALS: Ht 185.4 cm; Wt 120.7 kg
[~2021-03-06 13:39] MED LIST changes: +DILT30TA24 PO; +MAGN400T4 PO; +POTA20TA4 PO
[2021-03-06 18:15] VITALS: BP 126/75; TEMP 98
== END 2021-03-06 18:15 | disposition home or self-care (01) ==
LOC: ED 13:39
DX: S80.01XA Contusion of right knee, initial encounter (principal); S33.5XXA Sprain of ligaments of lumbar spine, initial encounter; W01.198A Fall on same level from slipping, tripping and stumbling with subsequent striking against other object, initial encounter; Y92.098 Other place in other non-institutional residence as the place of occurrence of the external cause
CPT/HCPCS: 96372; 99283; J1885

== ENCOUNTER 2021-03-12 16:41 | Emergency (ER) | payer OTHER ==
[~2021-03-12] VITALS: Ht 185.4 cm; Wt 120.7 kg
[2021-03-12 20:47] LABS: PLATELET COUNT 266 K/uL (142-355)
[2021-03-12 21:04] LABS: POTASSIUM 3.2 mmol/L (3.6-5.2)
[2021-03-12 22:27] VITALS: BP 129/64; TEMP 98.3
== END 2021-03-12 22:27 | disposition home or self-care (01) ==
LOC: ED 16:41
PROVIDERS: Emergency Medicine Emergency Medical Services
DX: J20.9 Acute bronchitis, unspecified (principal); Z93.0 Tracheostomy status
CPT/HCPCS: 36415; 80053; 85027; 99282; 99283

== ENCOUNTER 2021-03-19 13:12 | Emergency (ER) | payer OTHER ==
[~2021-03-19] VITALS: Ht 185.4 cm; Wt 120.7 kg
[2021-03-19 13:12] VITALS: TEMP 98.1
[2021-03-19 15:51] VITALS: BP 127/77
[2021-08-05] MEDS ORDERED: FARXIGA10 MG PO (14:09)
[2021-08-05] MEDS ORDERED: MECLIZINE 2525 MG PO (14:10)
[2021-08-05] MEDS ORDERED: ZOFRAN8 MG PO (14:11)
== END 2021-03-19 16:13 | disposition home or self-care (01) ==
LOC: ED 13:12
PROVIDERS: Family Medicine
DX: J95.01 Hemorrhage from tracheostomy stoma (principal); I48.91 Unspecified atrial fibrillation; Y83.8 Other surgical procedures as the cause of abnormal reaction of the patient, or of later complication, without mention of misadventure at the time of the procedure; Y92.89 Other specified places as the place of occurrence of the external cause
CPT/HCPCS: 85610; 85730; 99283; J7040

== ENCOUNTER 2021-06-02 14:57 | Emergency (ER) | payer OTHER ==
[~2021-06-02] VITALS: Ht 185.4 cm; Wt 120.7 kg
[2021-06-02 15:27] LABS: PLATELET COUNT 186 K/uL (142-355)
[2021-06-02 15:44] LABS: POTASSIUM 3.4 mmol/L (3.6-5.2)
[2021-06-02 15:57] LABS: PARTIAL THROMBOPLASTIN TIME 28.5 SECONDS (24.5-33.6)
[2021-06-02 17:20] VITALS: BP 108/53; TEMP 97.6
== END 2021-06-02 17:20 | disposition home or self-care (01) ==
LOC: ED 14:57
PROVIDERS: Hospitalist
DX: R42 Dizziness and giddiness (principal); I50.9 Heart failure, unspecified; I48.20 Chronic atrial fibrillation, unspecified
CPT/HCPCS: 36415; 80053; 80320; 81000; 82550; 83880; 84484; 85027; 85610; 85730; 93005; 96374; 99284; J1940

== ENCOUNTER 2021-06-19 08:57 | Emergency (ER) | payer OTHER ==
[~2021-06-19] VITALS: Ht 185.4 cm; Wt 120.7 kg
[2021-06-19 09:07] VITALS: TEMP 98.3
[2021-06-19 09:35] LABS: PLATELET COUNT 178 K/uL (142-355)
[2021-06-19 09:42] LABS: POTASSIUM 5.4 mmol/L (3.6-5.2)
[2021-06-19 12:40] VITALS: BP 155/84
== END 2021-06-19 12:40 | disposition home or self-care (01) ==
LOC: ED 08:57
PROVIDERS: Emergency Medicine
DX: T78.3XXA Angioneurotic edema, initial encounter (principal); N17.9 Acute kidney failure, unspecified; E86.0 Dehydration; Z93.0 Tracheostomy status; C14.0 Malignant neoplasm of pharynx, unspecified; Z79.899 Other long term (current) drug therapy; X58.XXXA Exposure to other specified factors, initial encounter; Y92.89 Other specified places as the place of occurrence of the external cause
CPT/HCPCS: 36415; 80048; 83735; 85027; 96360; 96361; 96375; 99284; J1200; J2920

== ENCOUNTER 2021-07-09 11:32 | Emergency (ER) | payer OTHER ==
[~2021-07-09] VITALS: Ht 185.4 cm; Wt 120.7 kg
[2021-07-09 11:32] VITALS: BP 132/78; TEMP 98.1
[2021-07-09 14:14] LABS: PLATELET COUNT 122 K/uL (142-355)
[2021-07-09 14:24] LABS: POTASSIUM 3.8 mmol/L (3.6-5.2)
== END 2021-07-09 15:24 | disposition home or self-care (01) ==
LOC: ED 11:32
PROVIDERS: Emergency Medicine Emergency Medical Services
DX: J20.9 Acute bronchitis, unspecified (principal); R42 Dizziness and giddiness
CPT/HCPCS: 80048; 85027; 87651; 93005; 99283

== ENCOUNTER 2021-08-31 18:18 | Emergency (ER) | payer OTHER ==
[~2021-08-31] VITALS: Ht 182.9 cm; Wt 122.5 kg
[~2021-08-31 18:18] MED LIST changes: +FARXIGA10 MG PO; +MECLIZINE 2525 MG PO; +ZOFRAN8 MG PO
[2021-08-31 20:10] VITALS: BP 118/87; TEMP 97.3
== END 2021-08-31 20:10 | disposition short-term general hospital (02) ==
LOC: ED 18:18
DX: T17.408A Unspecified foreign body in trachea causing other injury, initial encounter (principal); T17.498A Other foreign object in trachea causing other injury, initial encounter; X58.XXXA Exposure to other specified factors, initial encounter; Y93.E8 Activity, other personal hygiene; Y92.89 Other specified places as the place of occurrence of the external cause; U07.1 COVID-19
CPT/HCPCS: 87635; 99283; U0003

== ENCOUNTER 2021-11-02 11:26 | Emergency (ER) | payer OTHER ==
[~2021-11-02] VITALS: Ht 182.9 cm; Wt 122.5 kg
[2021-11-02 12:23] LABS: PLATELET COUNT 138 K/uL (142-355)
[2021-11-02 12:33] LABS: POTASSIUM 3.1 mmol/L (3.6-5.2)
[2021-11-02 13:01] LABS: PARTIAL THROMBOPLASTIN TIME 23.5 SECONDS (24.5-33.6)
[2021-11-02 14:30] VITALS: BP 135/70; TEMP 97.9
== END 2021-11-02 14:30 | disposition short-term general hospital (02) ==
LOC: ED 11:26
PROVIDERS: Hospitalist
DX: C06.89 Malignant neoplasm of overlapping sites of other parts of mouth (principal); C14.0 Malignant neoplasm of pharynx, unspecified; I50.9 Heart failure, unspecified; R06.02 Shortness of breath; Z11.52 Encounter for screening for COVID-19
CPT/HCPCS: 36600; 80053; 82550; 82805; 83880; 84484; 85027; 85610; 85730; 87502; 87635; 87651; 93005; 99284; U0003

== ENCOUNTER 2021-12-15 08:30 | Inpatient (IN) | payer OTHER ==
[2021-12-15] VITALS (13 sets, daily range): BP systolic 113–150; BP diastolic 60–87; TEMP 97.4–98.9; Ht 182.9 cm; Wt 105.9 kg
[~2021-12-15] VITALS: Ht 182.9 cm; Wt 105.9 kg
[2021-12-15 09:08] LABS: PLATELET COUNT 122 K/uL (142-355)
[2021-12-16] VITALS (11 sets, daily range): BP systolic 88–133; BP diastolic 60–75; TEMP 89.07–99.2
[2021-12-16 08:10] LABS: PLATELET COUNT 142 K/uL (142-355)
[2021-12-16 08:17] LABS: POTASSIUM 3.4 mmol/L (3.6-5.2)
[2021-12-16] MEDS ORDERED: DILTIAZEM HYDR120 MG PO (14:08)
[2021-12-16] MEDS ORDERED: PRAVASTATIN10 MG PO (14:14)
[2021-12-16] MEDS ORDERED: FUROSEMIDE40 MG PO (14:16)
[2021-12-16] MEDS ORDERED: SILVADENE1 % EX (14:19)
[2021-12-16] MEDS ORDERED: PERCOCET1 TA3 PO (14:20)
[2021-12-16] MEDS ORDERED: HYDR5TAB9 PO (14:22)
[2021-12-16] MEDS ORDERED: ONDANSETRON HYDR8 MG PO (14:24)
[2021-12-16] MEDS ORDERED: NYST100048 PO (14:24)
[2021-12-16] MEDS ORDERED: MIRALAX17 GM PO (14:25)
[2021-12-16] MEDS ORDERED: METF500T PO (14:26)
[2021-12-17] VITALS (7 sets, daily range): BP systolic 97–167; BP diastolic 56–80; TEMP 97.7–99
[2021-12-18 03:44] VITALS: BP 107/50; TEMP 98.2
[2021-12-18 05:09] LABS: PLATELET COUNT 127 K/uL (142-355)
[2021-12-18 05:26] LABS: POTASSIUM 3.2 mmol/L (3.6-5.2)
[2021-12-18 08:00] VITALS: BP 114/63; TEMP 98.2
[2021-12-18 12:00] VITALS: BP 109/62; TEMP 98.6
[2021-12-18 16:06] VITALS: BP 114/70; TEMP 97.7
== END 2021-12-18 15:30 | disposition short-term general hospital (02) | DRG 193 ==
LOC: ED 08:30 → MED/SURG 12:45
PROVIDERS: Emergency Medicine; Internal Medicine; ADMIT Internal Medicine; ATTEND Internal Medicine
PROC: 30233N1 Transfusion of Nonautologous Red Blood Cells into Peripheral Vein, Percutaneous Approach (ICD-10-PCS; principal; 2021-12-15)
PROC: 30233N1 Transfusion of Nonautologous Red Blood Cells into Peripheral Vein, Percutaneous Approach (ICD-10-PCS; 2021-12-16)
DX: J18.8 Other pneumonia, unspecified organism (principal); I50.21 Acute systolic (congestive) heart failure; J95.02 Infection of tracheostomy stoma; L03.221 Cellulitis of neck; J44.0 Chronic obstructive pulmonary disease with (acute) lower respiratory infection; I48.91 Unspecified atrial fibrillation; C32.9 Malignant neoplasm of larynx, unspecified; E78.49 Other hyperlipidemia; D64.89 Other specified anemias; Y83.8 Other surgical procedures as the cause of abnormal reaction of the patient, or of later complication, without mention of misadventure at the time of the procedure; Y92.89 Other specified places as the place of occurrence of the external cause; E11.9 Type 2 diabetes mellitus without complications; I11.0 Hypertensive heart disease with heart failure
CPT/HCPCS: 36415; 80053; 81000; 82272; 82607; 82728; 82746; 83540; 83550; 83880; 84443; 84466; 84484; 85027; 85610; 86850; 86900; 86901; 86922; 87635; 93005; 94664; 94760; 99283; J0456; J1940; J1956; J7040; P9016; U0003

== ENCOUNTER 2022-02-15 17:53 | Emergency (ER) | payer OTHER ==
[~2022-02-15] VITALS: Ht 182.9 cm; Wt 105.7 kg
[~2022-02-15 17:53] MED LIST changes: +DILTIAZEM HYDR120 MG PO; +FUROSEMIDE40 MG PO; +HYDR5TAB9 PO; +MIRALAX17 GM PO; +NYST100048 PO; +ONDANSETRON HYDR8 MG PO; +PERCOCET1 TA3 PO; +SILVADENE1 % EX
[2022-02-15 18:09] LABS: PLATELET COUNT 101 K/uL (142-355)
[2022-02-15 18:28] LABS: POTASSIUM 3.3 mmol/L (3.6-5.2)
[2022-02-15 18:30] LABS: PARTIAL THROMBOPLASTIN TIME 28.1 SECONDS (24.5-33.6)
[2022-02-15 20:40] VITALS: BP 101/69; TEMP 97.3
== END 2022-02-15 20:45 | disposition short-term general hospital (02) ==
LOC: ED 17:53
PROVIDERS: Hospitalist
DX: I21.4 Non-ST elevation (NSTEMI) myocardial infarction (principal); I48.91 Unspecified atrial fibrillation; C14.0 Malignant neoplasm of pharynx, unspecified; I10 Essential (primary) hypertension; Z11.52 Encounter for screening for COVID-19
CPT/HCPCS: 80053; 82140; 82550; 83880; 84484; 85027; 85610; 85730; 87635; 93005; 96360; 96365; 96375; 99284; J1644; J2405; J3490; U0003

== ENCOUNTER 2022-03-20 15:21 | Inpatient (IN) | payer OTHER ==
[2022-03-20] VITALS (7 sets, daily range): BP systolic 80–109; BP diastolic 29–43; TEMP 98.9–101.3
[~2022-03-20] VITALS: Ht 182.9 cm; Wt 93.0 kg
[2022-03-20 16:54] LABS: PLATELET COUNT 108 K/uL (142-355); POTASSIUM 4.5 mmol/L (3.6-5.2)
[2022-03-21] VITALS (18 sets, daily range): BP systolic 80–105; BP diastolic 32–67; TEMP 97.5–98.9; Ht 182.9 cm; Wt 93.0 kg
--- NOTE | 2022-03-21 00:15 | NUR ---
PATIENT ADMITTED TO ROOM# 1106 VIA STRETCHER FROM THE ER. PATIENT IA ALERT AND ORIENTED AND HAS A TRACH. PATIENT ORIENTED TO ROOM AND CALL SYSTEM AND DEMONSTRATES UNDERSTANDING OF HOW TO USE CALL LIGHT. PATIENT NORMALLY SUCTIONS HIMSELF NEEDED AT HOME, SUCTION SET UP IN PATIENT ROOM AND YANKEUR WITHIN PATIENTS REACH AND HIS CALL LIGHT WELL. PATIENT DENIES ANY COMPLAINTS OR REQUESTS AT THIS TIME. WILL CONTINUE TO MONITOR.
--- NOTE | 2022-03-21 04:35 | NUR ---
PICKED UP FIRST UNIT OF PRBCS AT THIS TIME. PATIENT ARRIVED ON THE FLOOR WITH A 20G IV SITE TO HIS LEFT AC THAT WAS PATENT AND INTACT. WHEN ATTEMPTING TO FLUSH SITE TO START TRANSFUSION IV SITE IS NOW NOT PATENT AND WAS PULLED SLIGHTLY OUT. A NEW IV SITE WAS QUICKLY STARTED A 20G TO HIS LEFT FOREARM AND PRBCS WAS STARTED AT 0459 AT 50MLS/HR DUE TO PATIENT HISTORY OF CHF. NO SIGNS OR SYMPTOMS OF REACTION NOTED. PATIENT RESTING QUIETLY WITH HIS EYES CLOSED.
[2022-03-21 04:43] LABS: PLATELET COUNT 90 K/uL (142-355)
--- NOTE | 2022-03-21 05:14 | NUR ---
MONITORED PATIENT X 15 MINUTES NO SIGNS OR SYMPTOMS OF REACTION NOTED AT THIS TIME. RATE INCREASED TO 75 ML/HR AT THIS TIME. CALL LIGHT WITHIN REACH. WILL CONTINUE TO MONITOR.
--- NOTE | 2022-03-21 05:40 | NUR ---
CALLED DR. ARMIJO TO REPORT PATIENTS CRITICAL LAB VALUES OF H&H HEMOGLOBIN IS 6.2 AND HEMATOCRIT IS 18.3. PATIENT IS NOW RECEIVING THE FIRST UNIT OF PRBCS AND THE LABS WERE DRAWN PRIOR TO STARTING. NO NEW ORDERS RECEIVED. ALSO PATIENTS BLOOD PRESSURES HAVE BEEN LOW SINCE ARRIVAL TO ER BUT PATIENT DOES HAVE A HISTORY OF CHF SO DR. ARMIJO STATED TO GIVE PRBCS SLOWLY AND MONITOR PATIENT FOR OVERLOAD. PATIENT RESTING QUIETLY AT THIS TIME WITH HIS EYES CLOSED BUT DOES WAKE AND RESPOND WHEN SPOKEN TO. CALL LIGHT WITHIN REACH. WILL CONTINUE TO MONITOR.
--- NOTE | 2022-03-21 07:11 | NUR ---
NO S/S OF DISTRESS. FIRST UNIT OF PRBC INFUSING WITHOUT DIFFICULTY. PT ALERT AND ORIENTED.
[2022-03-21] MEDS ORDERED: METOPROLOL25 M1 PO (11:05)
[2022-03-21] MEDS ORDERED: ENDOCET1 TAB PO (11:06)
[2022-03-21] MEDS ORDERED: DILTIAZEM HYDR180 MG PO (11:08)
[2022-03-21] MEDS ORDERED: FURO40TA93 PO (11:09)
[2022-03-21] MEDS ORDERED: POTASSIUM CHLO20 ME1 PO (11:12)
[2022-03-21] MEDS ORDERED: PRAVASTATIN10 MG PO (11:14)
[2022-03-21] MEDS ORDERED: ELIQUIS5 MG PO (11:16)
[2022-03-21] MEDS ORDERED: ZOLOFT25 MG PO (11:27)
[2022-03-21] MEDS ORDERED: DIGOXIN125 MCG PO (11:27)
[2022-03-21] MEDS ORDERED: DILT-XR120 MG PO (11:51)
--- NOTE | 2022-03-21 14:39 | NUR ---
CAME TO START PT'S SECOND UNIT OF BL;OOD AND PT STILL CO OF LEFT HAND/WRIST PAIN. LEFT HAND AND WRIST SWOLLEN WHEN COMPARED TO THE RT EXT. NOTIFIED AND WILL CONT TO MONITOR.
--- NOTE | 2022-03-21 14:47 | NUR ---
RETURNED CALL AND STATED SHE WILL ADD XRAY TO PT
--- NOTE | 2022-03-21 16:42 | NUR ---
URIC ACID RESULT GIVEN TO DR SCHMID. NEW ORDERS REC'D TO START VOLTAREN GEL AWAITING FURTHER ORDERS TO BE PLACED AND PROFILED
--- NOTE | 2022-03-21 17:39 | NUR ---
CALLED DR SCHMID TO ASK ABOUT LASIX ORDER AFTER 2ND UNIT OF BLOOD INFUSED. TELEPHONES ORDERS REC'D TO GIVE LASIX 20MG IV D/T XRAY RESULT PER . INFOMRED HER OF PT'S BP OF 90/48
[2022-03-22] VITALS (7 sets, daily range): BP systolic 86–122; BP diastolic 52–94; TEMP 97.3–98.3
[2022-03-22 05:09] LABS: PLATELET COUNT 87 K/uL (142-355)
[2022-03-22 05:33] LABS: POTASSIUM 3.7 mmol/L (3.6-5.2)
--- NOTE | 2022-03-22 08:56 | NUR ---
PATIENT SUCTIONED AND TRACH CANTRELL AND WATER BOTTLE CHANGED
--- NOTE | 2022-03-22 18:44 | NUR ---
PATIENT DEEP SUCTION AND GAUZE CHANGED AT THE TRACH
--- NOTE | 2022-03-23 00:34 | NUR ---
PT REQUESTING TO GET IN CHAIR. ASSISTED PT TO CHAIR WITH MINIMAL EFFORT. PT DENIES PAIN AND HAS NO ACUTE S/SX OF DISTRESS. CALL LIGHT PUT AT CHAIR.
[2022-03-23 04:00] VITALS: BP 88/31; TEMP 97.6
[2022-03-23 08:00] VITALS: BP 101/61; TEMP 97.7
--- NOTE | 2022-03-23 11:26 | NUR ---
Clarita from [facility] called and said that this was the second time that clinicals had been requested and that it was fixing to go to review for peer to peer if they were not received today. Senior Web Analyst asked when did they request the first set of clinicals and she said on the . delivery specialist told her that was Wednesday and that noone in was here on the weekend. Senior Web Analyst asked when was the second time and she said now with this phone call. Senior Web Analyst told her that it was a holiday and that the person that normally does that is not here and could medical underwriter assist her. Senior Web Analyst then inquired about [facility] denying patients when it was holidays and no one to send updates. She said that they work 7 days a week 365 days a year. Senior Web Analyst sent the information as requested to [facility] Ref# [id number]. Confirmation of fax going through received.
[2022-03-23 12:00] VITALS: BP 96/65; TEMP 97.5
--- NOTE | 2022-03-23 13:13 | NUR ---
PT ALERT AND ORIENTED. DENIES ANY PAIN AT PRESENT TIME. DISCOMFORT NOTED TO RIGHT ARM R/T SWELLING/GOUT. APPLIED VOLTAREN GEL TO RIGHT ARM. DECREASED SWELLING NOTED, NO REDNESS, SKIN W/D. IV SITES INTACT TO LFA, LEFT WRIST AND RIGHT FA AND ALL SALINE LOCK. NO REDNESS/SWELLING NOTED TO SITES. PT HAS TRACH AND TRACH CARE PERFORMED BY PT, PER PT REQUEST. PT HAS [facility] INTACT AND REQUIRES ASSISTANCE FOR BEDPAN. CONTINUE TO MONITOR.
--- NOTE | 2022-03-23 15:56 | NUR ---
PT LAYING IN BED WATCHING TV. DID NOT OBTAIN ORTHOSTATIC BP PER HCP(SHARMAINE) PT C/O "FEELING TO WEAK TO STAND UP." GENERALIZED WEAKNESS R/T DX. POOR APPETITE, ONLY EATS ABOUT 25% OF MEALS. DENIES ANY PAIN/DISCOMFORT. CONTINUE TO MONITOR.
[2022-03-23 16:00] VITALS: BP 90/54; TEMP 98.5
--- NOTE | 2022-03-23 18:33 | NUR ---
PT LAYING SEMI-FOWLERS IN BED WITH EYES CLOSED. DINNER TRAY AT BEDSIDE, PT STATES "JUST LEAVE IT THERE, I'LL EAT IT LATER." DENIES ANY PAIN/DISCOMFORT. UNABLE TO OBTAIN ORTHOSTATIC BP ORDERED BY HCP, INFORMED HCP THAT DUE TO PTS GENERALIZED WEAKNESS UNALBLE TO OBTAIN. INFORMED HCP OF PTS BP TODAY AND DECREASED URINE OUTPUT THIS SHIFT. CONTINUE TO MONITOR.
[2022-03-23 20:00] VITALS: BP 112/66; TEMP 97.8
--- NOTE | 2022-03-23 20:00 | NUR ---
CLIENT IS A/O X4, IN BED. CLIENT IS CURRENTLY RECEIVING BREATHING TREATMENT THROUGH TRACH, COPIOUS AMOUNT OF MUCOUS SECRETIONS NOTED. GONZALEZ, THICK COLORED SPUTUM. CLIENT'S LEFT ARM IS EDEMATOUS, WITH 1+ PITTING EDEMA. CLIENT STATES THAT IT HURTS TO TOUCH AND MOVE. PROVIDED PAIN MEDICATION. NO WOUNDS OR ABRASIONS NOTED.
[2022-03-24] VITALS: BP 98/60; TEMP 98.4
[2022-03-24 04:00] VITALS: BP 98/68; TEMP 98.3
[2022-03-24 05:39] LABS: PLATELET COUNT 98 K/uL (142-355)
[2022-03-24 05:53] LABS: POTASSIUM 3.3 mmol/L (3.6-5.2); SODIUM 136 mmol/L (136-145)
[2022-03-24 08:00] VITALS: BP 94/55; TEMP 97.5
--- NOTE | 2022-03-24 09:22 | NUR ---
PO MEDICATIONS GIVEN AT THIS TIME AND PATIENT TOOK W/O DIFFICULTY.
--- NOTE | 2022-03-24 10:04 | NUR ---
MD and card writer hand went to talk to patient about doing short term rehab and he was not willing to go that route. Wireless Sales Expert and MD agree that card writer hand would call his and talk to her about this and after conversation patients very confused and not able to assist. bread panner spoke with patient again and he said that their granddaughter Tesha lives with them and that their daughter Vanesa lives close and that he has decided to do short term therapy but that he wants to talk to his family first. Wireless Sales Expert called back and asked to speak with granddaughter or daughter or if could give card writer hand their number. Patient unable to give card writer hand any phone numbers either including his own. gave card writer hand the following number [phone]. Wireless Sales Expert then alerted staff that if patient had any phone calls to please get card writer hand a phone number to contact family other than his . aware of the above.
--- NOTE | 2022-03-24 11:39 | NUR ---
Verse Writer tracked down phone number for patients granddaughter Tesha and let her know that the patient had requested for her, her mom, and grand mom to come meet with him. When leader writer let patient know that they would be here around 2pm he said that he was going to do short term therapy and to start looking. Verse Writer told him I would [facility] and move outward.
--- NOTE | 2022-03-24 11:45 | NUR ---
IV MEDICATIONS GIVEN AT THIS TIME. RT IS AT BEDSIDE DOING ECHO.
[2022-03-24 12:00] VITALS: BP 102/66; TEMP 98.2
--- NOTE | 2022-03-24 13:03 | NUR ---
Brass Molder notified patient that the [facility] had no male beds available. Brass Molder then asked did he want me to reach out to [facility]. called Rafa the admission director and left a message for her to contact about a admission.
--- NOTE | 2022-03-24 13:44 | NUR ---
PATIENT REQUESTED PAIN MEDICATION. PATIENT GIVEN HYDROCODONE ORDERED. PRN. PATIENT STATES HIS STOMACH HURTS. PATIENT REPORTS PAIN A 10. PAIN IS TENDER.
--- NOTE | 2022-03-24 15:04 | NUR ---
Patients granddaughter Tesha called just now and said that they were not able to be her at 1400 related to car trouble. She said that she would try to make it at a later time today, but if not they will come in the morning. Rn Transfer updated her on trying to find placement per patients request and that literary writer was unsure of why he wanted to meet with his family. She said that was fine and that she would see him later today or tomorrow. solar thermal installer notified patient and nursing of the above.
[2022-03-24 16:00] VITALS: BP 103/64; TEMP 98.3
--- NOTE | 2022-03-24 17:14 | NUR ---
PATIENT GIVEN A COMPLETE BED BATH AND LINENS WERE CHANGED. TELEMETRY LEADS REPLACED AND PATIENT REPOSITIONED UP IN THE BED WITH PILLOWS. PATIENT REQUIRED MAX ASSISTANCE EVEN WITH PATIENT HELPING. PATIENT IS STILL WEAK.
--- NOTE | 2022-03-24 18:48 | NUR ---
LATE ENTRY 03/24/22 0738 ON ROUNDING THIS MORNING PATIENT IS AWAKE AND ALERT. PATIENT IS HERE WITH DX OF SYNCOPE, SEVERE ANEMIA AND CHF. ON ASSESSMENT PATIENT HAS A TRACH AND 02 AT 3 LITERS NC WITH 02 SATS 94%. PATIENT HAS COPIOUS YELLOW SECRETIONS COMING OUT OF TRACH. YANKEUR CONNECTED TO TO SUCTION. PATIENT HAS RHONCI TO UPPER AND MIDLOBES AND IS DIMINISHED TO LOWER LOBES. LEFT UPPER EXTREMITY IS EDEMATOUS FROM AC DOWN TO ALL 5 FINGERS. ARM ELEVATED ON PILLOW. IV 22G TO THE RAC IS PATENT AND INTACT AND SALINE LOCKED. IV 20G TO THE RIGHT WRIST IS PATENT AND INTACT AND SALINE LOCKED. BOTH IV'S HAVE NO SIGNS INFILTRATION OR PHLEBITIS PRESENT. IV 20G TO THE LEFT FOREARM REMOVED WITH TIP INTACT AND SECURED WITH 2X2 AND TAPE. BED IS LOCKED IN LOW POSITION, SIDERAILS UP X2 AND CALL FORDE IS WITHIN REACH.
[2022-03-24 20:00] VITALS: BP 111/64; TEMP 97.9
--- NOTE | 2022-03-24 20:00 | NUR ---
PATIENT IS LAYING HF IN BED. A/O X4. CLIENT DENIES PAIN OR DISCOMFORT AT THIS TIME. CLIENT'S LEFT ARM (AC TO DIGITS) EDEMATOUS WITH 1+ PITTING EDEMA. CLIENT DECLINES PAIN MEDICATION AT THIS TIME FOR ARM. ARM IS CURRENTLY ELEVATED ON PILLOW. CHRONIC TRACH SITE NOTED DRY, NO SECRETIONS NOTED AT THIS TIME. CLIENT REPORTS OVERALL FATIGUE. CALL LIGHT IN REACH, BED LOCKED IN LOWEST POSITION.
[2022-03-25] VITALS: BP 117/58; TEMP 98.3
[2022-03-25 04:00] VITALS: BP 103/62; TEMP 97.8
[2022-03-25 05:15] LABS: PLATELET COUNT 119 K/uL (142-355)
[2022-03-25 05:27] LABS: POTASSIUM 3.9 mmol/L (3.6-5.2)
--- NOTE | 2022-03-25 07:35 | NUR ---
PT LAYING IN BED RESTING QUIETLY AT THIS TIME. NAD NOTED. PT'S O2 ON AT 5LPM VIA TRACH TENT. CALL LIGHT WITHIN REACH, BED LOW AND LOCKED.
--- NOTE | 2022-03-25 07:45 | NUR ---
AM ASSESSMENT COMPLETED AT THIS TIME. PT AWAKE, ALERT AND ORIENTED. PT NOTED TO HAVE SWELLING TO LUE 2+. LUE ELEVATED AT THIS TIME. ENCOURAGED PT TO KEEP IT ELEVATED. PT C/O IN EXTREMITY. DR. MARTINEZ NOTIFED.
[2022-03-25 08:00] VITALS: BP 109/70; TEMP 98.5
--- NOTE | 2022-03-25 08:17 | NUR ---
PATIENT WAS DEEP SUCTIONED
--- NOTE | 2022-03-25 09:08 | NUR ---
NEW ORDERS REC'D TO OBTAIN PT/OT REQUEST FOR SHORT TERM SHELTER PLACMENT . WILL UPDATE PT'S NURSE AT THIS TIME.
[2022-03-25 12:00] VITALS: BP 109/63; TEMP 98.1
--- NOTE | 2022-03-25 15:31 | NUR ---
PATIENT DEEP SUCTIONED
--- NOTE | 2022-03-25 15:52 | NUR ---
PT'S FAMILY AT BEDSIDE. CALLED TO PT'S ROOM. PT STATES "I'M GOING HOME" INFORMED PT AND FAMILY THAT HE IS NOT BEING DISCHARGED AT THIS TIME AND THE PHYSICIAN HAS ALREADY MADE ROUNDS TODAY WE WILL INFORM DR. MARTINEZ THAT THEY ARE HERE AND WOULD LIKE TO SPEAK WITH HER. MAIKEL CLARKE, RN SPOKE WITH PT'S FAMILY WELL.
[2022-03-25 16:00] VITALS: BP 115/67; TEMP 98.3
--- NOTE | 2022-03-25 16:15 | NUR ---
PT'S FAMILY CAME AND STATED THAT THE PT WAS NOW STATING "I AM NOT GOING ANYWHERE SHORT-TERM I AM GOING HOME" FAMILY DID ASK FOR MD HOWEVER I EXPLAINED THAT SHE HAD ALREADY MADE ROUNDS AND WAS IN ANOTHER PART OF THE HOSP AT THIS TIME. I DID CONTACT DR MARTINEZ AND FAMILY MEETING SET UP FOR IN THE AM AT 10:30 AT THE FAMILYS REQUEST. WILL UPDATE SUDHIR IN CASE MANAG IN AM
[2022-03-25 20:00] VITALS: BP 111/61; TEMP 98.1
--- NOTE | 2022-03-25 20:58 | NUR ---
PATIENT DEEP SX FOR LARGE AMOUTN OF THICK GONZALEZ SECRETIONS
[2022-03-26] VITALS: BP 99/53; TEMP 98.2
--- NOTE | 2022-03-26 01:21 | NUR ---
PT LYING IN BED WATCHIG TV. DENIES PAIN. BREATHING IS EVNE AND UNLABORED. PT ASKED FOR SUCTION WAND. OFFERED PO FLUIDS. REPOSITIONED LEFT ARM ON PILLOW FOR COMFORT. NO S/SX OF DISTRESS NOTED. CALL LIGHT WITHIN REACH.
[2022-03-26 04:00] VITALS: BP 96/57; TEMP 98.1
[2022-03-26 12:00] VITALS: BP 109/62; TEMP 98.1
[2022-03-26 16:00] VITALS: BP 112/79; TEMP 97.7
[2022-03-26 20:00] VITALS: BP 117/65; TEMP 97.9
--- NOTE | 2022-03-26 20:21 | NUR ---
PATIENT SX FOR MODERATE AMOUNT OF THICK SECRETIONS, PATIENT ABLE TO EFFECTIVELY COUGH UP SECRETIONS FOR SX
--- NOTE | 2022-03-26 20:43 | NUR ---
RECEIVED PT NEEDING TO BE CHANGED. CHANGED PT WITH ASSISTANCE. PT'S BP WNL AT 118/65 WITH P OF 80. BREATHING IS EVEN AND UNLABORED WITH O2 AT 100%. NO S/SX OF DISTRESS NOTED. SWELLING TO RIGHT ARM AND WRIST. CALL LIGHT WITHIN REACH.
[2022-03-27] VITALS: BP 99/64; TEMP 97.9
[2022-03-27 04:00] VITALS: BP 100/64; TEMP 96.8
[2022-03-27 08:00] VITALS: BP 111/74; TEMP 97.8
--- NOTE | 2022-03-27 08:18 | NUR ---
PT WAS RESTING WHEN ENTERED ROOM. NO S/S OF PAIN/DISCOMFORT. PT HAS COPIOUS YELLOW SECERTIONS COMING FROM TRACH SITE. BOTH IV SITES 20 G RIGHT AC AND 22 G RIGHT WRIST SHOW NO SIGNS OF REDNESS. CRACKLE ON RIGHT UPPER LUNG. BED ALERT WITHIN REACH. WILL CONUTINE TO MONITOR.
[2022-03-27] MEDS ORDERED: APIX1TAB PO (11:09)
[2022-03-27] MEDS ORDERED: MUCOMYST 20% INH (11:13)
[2022-03-27] MEDS ORDERED: CEFD300C2 PO (11:15)
[2022-03-27] MEDS ORDERED: MIDODRINE5 MG PO (11:15)
--- NOTE | 2022-03-27 11:17 | NUR ---
[facility] received approval for patient to have a short stay at their facility. Museum Assistant notified MD/NURSING, and patients granddaughter Tesha. internal grinding machine operator also told her that patient would need clothing to wear for therapy, and some non-skid shoes. She asked did she have to be here before 11am insurance underwriter told her that as soon as I had a ETA that she would be notified. Museum Assistant set up transport with [facility] and notified Tesha that they would be here in about 1 1/2 hours. She said that she would come at 1130 insurance underwriter did let her know that when transport arrived they would not be able to wait for them to get her she said she understood. Nursing notified of transport.
[2022-03-27] MEDS ORDERED: ALBUSOL INH (11:18)
--- NOTE | 2022-03-27 11:35 | NUR ---
PT DISCHARGED FROM [facility] AND TRANSPORTED TO [facility] IN [place]. IV SITES D/C'D AND NO SWELLING OR REDNESS NOTED TO SITE. 12 GHANAIAN [facility] REMAINS INTACT DUE TO PTS INCONTINENCE. DENIES PAIN/DISCOMFORT. REPORT CALLED TO FRANK NURSE AT [facility] AT 1125. AM MEDS WERE ADMINISTERED ORDERED PRIOR TO PT LEAVING. O2 AT 2LPM VIA NC INTACT. [facility] ARRIVED AT 1120 TO TRANSPORT PT AND LEFT AT 1127. PT ALERT AND ORIENTED. GRANDDAUGHTER AND AT BEDSIDE WHEN PT DEPARTED.
== END 2022-03-27 11:27 | DRG 872 ==
LOC: ED 15:21 → MED/SURG 23:15 → UNDODEPER 03-21 01:07 → MED/SURG 03-27 11:27
PROVIDERS: Internal Medicine; ADMIT Emergency Medicine; ATTEND Internal Medicine
DX: R78.81 Bacteremia (principal); N17.8 Other acute kidney failure; B95.4 Other streptococcus as the cause of diseases classified elsewhere; E66.01 Morbid (severe) obesity due to excess calories; Z68.28 Body mass index [BMI] 28.0-28.9, adult; G47.33 Obstructive sleep apnea (adult) (pediatric); R55 Syncope and collapse; D64.89 Other specified anemias; I95.89 Other hypotension; Z93.0 Tracheostomy status; Z85.818 Personal history of malignant neoplasm of other sites of lip, oral cavity, and pharynx; J44.9 Chronic obstructive pulmonary disease, unspecified; E11.9 Type 2 diabetes mellitus without complications; I11.0 Hypertensive heart disease with heart failure; I50.9 Heart failure, unspecified
CPT/HCPCS: 36415; 36430; 51702; 80053; 81000; 82272; 82728; 82948; 83540; 83550; 83880; 84466; 84484; 84550; 85027; 86850; 86900; 86901; 86922; 87040; 87077; 87185; 87186; 87205; 87502; 87635; 93005; 94664; 94760; 96365; 96376; 99284; J0692; J0696; J1940; P9016; U0003

== ENCOUNTER 2022-05-13 17:58 | Inpatient (IN) | payer OTHER ==
[~2022-05-13] VITALS: Ht 182.9 cm; Wt 82.2 kg
[~2022-05-13 17:58] MED LIST changes: +ALBUSOL INH; +APIX1TAB PO; +CEFD300C2 PO; +DIGOXIN125 MCG PO; +DILT-XR120 MG PO; +DILTIAZEM HYDR180 MG PO; +ENDOCET1 TAB PO; +METOPROLOL25 M1 PO; +MIDODRINE5 MG PO; +MUCOMYST 20% INH; +ZOLOFT25 MG PO
[2022-05-13 18:15] VITALS: BP 113/59; TEMP 98.6
[2022-05-13 18:15] LABS: PLATELET COUNT 163 K/uL (142-355)
[2022-05-13 18:31] LABS: PARTIAL THROMBOPLASTIN TIME 28.2 SECONDS (24.5-33.6)
[2022-05-13 18:33] LABS: POTASSIUM 2.3 mmol/L (3.6-5.2)
[2022-05-13 22:57] VITALS: BP 132/86; TEMP 98.2
[2022-05-14] VITALS (13 sets, daily range): BP systolic 93–132; BP diastolic 49–86; TEMP 97.3–178.6; Ht 182.9 cm; Wt 82.2 kg
[2022-05-14 05:02] LABS: PLATELET COUNT 150 K/uL (142-355)
[2022-05-14 05:37] LABS: POTASSIUM 2.4 mmol/L (3.6-5.2)
[2022-05-15 04:00] VITALS: BP 111/61; TEMP 98.3
[2022-05-15 04:21] LABS: PLATELET COUNT 130 K/uL (142-355)
[2022-05-15 05:11] LABS: POTASSIUM 2.8 mmol/L (3.6-5.2)
[2022-05-15 08:00] VITALS: BP 119/68; TEMP 97.9
[2022-05-15 12:09] VITALS: BP 116/70; TEMP 98.1
[2022-05-15 16:08] VITALS: BP 105/70; TEMP 98.4
[2022-05-15 20:00] VITALS: BP 108/62; TEMP 98.3
[2022-05-16] VITALS: BP 114/71; TEMP 98.3
[2022-05-16 04:00] VITALS: BP 106/65; TEMP 99.2
[2022-05-16 07:56] LABS: POTASSIUM 3.5 mmol/L (3.6-5.2)
[2022-05-16 08:00] VITALS: BP 102/66; TEMP 98.6
[2022-05-16 12:00] VITALS: BP 110/69; TEMP 98.9
[2022-05-16 16:00] VITALS: BP 116/71; TEMP 98.7
[2022-05-16 20:00] VITALS: BP 120/70; TEMP 98.1
[2022-05-17] VITALS: BP 114/69; TEMP 97.4
[2022-05-17 04:00] VITALS: BP 118/72; TEMP 98.1
[2022-05-17 05:17] LABS: PLATELET COUNT 138 K/uL (142-355)
[2022-05-17 05:39] LABS: POTASSIUM 3.6 mmol/L (3.6-5.2)
[2022-05-17 08:00] VITALS: BP 109/73; TEMP 98.4
[2022-05-17 12:00] VITALS: BP 113/78; TEMP 98.1
[2022-05-17 16:00] VITALS: BP 110/66; TEMP 98.5
[2022-05-17 20:00] VITALS: BP 101/65; TEMP 98.7
[2022-05-18] VITALS (7 sets, daily range): BP systolic 89–110; BP diastolic 53–82; TEMP 97.9–98.9
[2022-05-18 05:10] LABS: PLATELET COUNT 136 K/uL (142-355)
[2022-05-18 05:41] LABS: POTASSIUM 3.3 mmol/L (3.6-5.2)
[2022-05-19 04:00] VITALS: BP 82/64; TEMP 97.6
[2022-05-19 08:00] VITALS: BP 106/71; TEMP 97.4
[2022-05-19 12:00] VITALS: BP 96/73; TEMP 97.2
[2022-05-19 16:00] VITALS: BP 132/60; TEMP 98.9
[2022-05-19 20:00] VITALS: BP 95/65; TEMP 97.5
[2022-05-20] VITALS: BP 91/60; TEMP 97.5
[2022-05-20 04:00] VITALS: BP 103/58; TEMP 97.5
[2022-05-20 05:17] LABS: PLATELET COUNT 134 K/uL (142-355)
[2022-05-20 08:00] VITALS: BP 102/66; TEMP 97.5
[2022-05-20 12:00] VITALS: BP 137/73; TEMP 97.9
== END 2022-05-20 16:00 | disposition short-term general hospital (02) | DRG 178 ==
LOC: ED 17:58 → MED/SURG 21:05
PROVIDERS: ADMIT Emergency Medicine; ATTEND Internal Medicine
DX: J69.0 Pneumonitis due to inhalation of food and vomit (principal); E46 Unspecified protein-calorie malnutrition; R13.19 Other dysphagia; I11.0 Hypertensive heart disease with heart failure; I50.9 Heart failure, unspecified; I48.91 Unspecified atrial fibrillation; Z79.01 Long term (current) use of anticoagulants; D64.89 Other specified anemias; G47.39 Other sleep apnea; Z93.0 Tracheostomy status; E87.6 Hypokalemia; E83.42 Hypomagnesemia; E11.9 Type 2 diabetes mellitus without complications; E66.01 Morbid (severe) obesity due to excess calories; Z68.27 Body mass index [BMI] 27.0-27.9, adult; L89.152 Pressure ulcer of sacral region, stage 2
CPT/HCPCS: 36415; 36430; 80053; 81000; 82607; 82728; 82747; 82948; 83540; 83550; 83735; 83880; 84466; 84484; 85027; 85610; 85730; 86850; 86900; 86901; 86922; 87040; 87086; 87088; 87635; 93005; 94664; 94760; 96365; 96366; 96367; 96375; 99220; 99284; C1726; G0378; J1956; J3475; J3480; J3490; P9016; U0003